=== PATIENT | male | born 1945 | race African-American/Black ===

== ENCOUNTER 2018-08-08 08:21 | Day surgery (SDC) | payer OTHER ==
[~2018-08-08] VITALS: Ht 185.4 cm; Wt 81.6 kg
[2018-08-08] MEDS ORDERED: BUPIVACAINE 0.25% INJ 50ML VIAL ONE (08:55)
[2018-08-08] MEDS ORDERED: BETAMETHASONE ACET (6MG/ML) 5ML VIAL ONE (08:57)
[2018-08-08] MEDS ORDERED: METOCLOPRAMIDE HCL 5MG/ml INJ 2ml VIAL IV ONE (09:00)
[2018-08-08] MEDS ORDERED: HYDROmorphone HCL 2 MG/ML VL IV PRN (09:00)
[2018-08-08] MEDS ORDERED: KETOROLAC TROMETH 30 MG/ML 1ML VIAL IV ONE (09:00)
[2018-08-08] MEDS ORDERED: ONDANSETRON HCL 4 MG/2 ML VIAL ONE (09:01)
[2018-08-08] MEDS ORDERED: SODIUM CHLORIDE LOCK 10 ML ONE ×3 (09:01→10:56)
[2018-08-08] MEDS ORDERED: PROPOFOL 10 MG/ML 20 ML IV ONE (09:01)
[2018-08-08] MEDS ORDERED: HYDROmorphone HCL 2 MG/ML VL ONE (09:01)
[2018-08-08] MEDS ORDERED: ROCURONIUM 10MG/ML 10ML VIAL IV ONE (09:01)
[2018-08-08] MEDS ORDERED: MIDAZOLAM HCL 1MG/1ML-2 ML VIAL ONE (09:01)
[2018-08-08] MEDS ORDERED: fentaNYL CITRATE 100 MCG/2 ML VL ONE (09:01)
[2018-08-08] MEDS ORDERED: fentaNYL CITRATE 10 ML ONE (09:01)
[2018-08-08] MEDS ORDERED: KETAMINE HCL 1 ML ONE (09:01)
[2018-08-08] MEDS ORDERED: ceFAZolin 1GM/50ML 50 ML IV ONE (09:13)
[2018-08-08] MEDS ORDERED: BUPIVACAINE W/ EPINEPH 0.25% INJ 50ML MDV ONE (09:50)
[2018-08-08] MEDS ORDERED: fentaNYL CITRATE 5 ML ONE (10:45)
[2018-08-08] MEDS ORDERED: ePHEDrine SULFATE 50 MG/ML AMP ONE (10:56)
[2018-08-08 13:10] VITALS: BP 118/84
== END 2018-08-08 13:45 | disposition home or self-care (01) ==
LOC: SUR 08:21
PROVIDERS: ATTEND Orthopaedic Surgery
DX: S42.491A Other displaced fracture of lower end of right humerus, initial encounter for closed fracture (principal); G56.31 Lesion of radial nerve, right upper limb; F17.210 Nicotine dependence, cigarettes, uncomplicated; I10 Essential (primary) hypertension; B19.20 Unspecified viral hepatitis C without hepatic coma; D64.9 Anemia, unspecified; Z88.2 Allergy status to sulfonamides; Z88.1 Allergy status to other antibiotic agents; Z98.890 Other specified postprocedural states; Z79.899 Other long term (current) drug therapy; X58.XXXA Exposure to other specified factors, initial encounter; Y93.89 Activity, other specified; Y92.89 Other specified places as the place of occurrence of the external cause; Y99.8 Other external cause status
CPT/HCPCS: 20680; 24516; 73060; 87070; 87075; 87205; C1713; C1781; J0690; J0702; J1170; J2250; J2405; J2704; J3010; J3490; 76001